=== PATIENT | male | born 1945 | race Caucasian/White ===

== ENCOUNTER → 2017-09-22 | Emergency (ER) | payer MEDICARE ==
[~2017-09-22] VITALS: Ht 180.3 cm; Wt 98.4 kg
[~2017-09-22] MED LIST: ALLOPURINOL100 MG PO; B100 BALANCED100 MG PO; CILOXAN5 ML OS; CYCLOBENZAPRINE5 MG PO; DAILY VITAMIN1 EAC2 PO; GABAPENTIN600 MG PO; GRALISE600 MG; HUMALOG100 UNIT/1 SQ; LEVEMIR100 UNIT/1 SUB-Q; LISINOPRIL10 MG PO; MELATONIN3 MG PO; METFORMIN HCL1000 MG PO; NORCO 5-325 TA1 EACH PO; OXYCODON-ACETA1 EAC2 PO; OXYCONTIN10 MG PO; SERTRALINE HCL50 MG PO; TAMSULOSIN HCL0.4 MG PO; TRADJENTA5 MG PO; TYLENOL325 MG PO; VITAMIN B-12100 MCG PO; VITAMIN D2000 UNI1 PO
--- OUTSIDE RECORDS SUMMARY | 2017-09-22 14:42 | XMS ---
Demographics + + + | Address | [address] | | | [address] | | | [place] [address] | + + + | Preferred Language | Unknown | + + + | Marital Status | Unknown | + + + | Scientologist Affiliation | Unknown | + + + | Race | Unknown | + + + | Ethnic Group | Unknown | + + + Author + + + | Author | [facility] | + + + | Organization | [facility] | + + + | Address | [address] | | | [place] [address] | + + + | Phone | | + + + Care Team Providers + + + + | Care Manager Management Name | Role | Phone | + + + + Unavailable | Unavailable | + + + + PROBLEMS +---------+ + + +--------+ + + | Type | Condition | ICD9-CM | [id number] | Onset | Condition | SNOMED | | | | Code | Code | Dates | Status | Code | +---------+ + + +--------+ + + | Problem | 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 | | Active | [id number] | | | disorder | | | | | | +---------+ + + +--------+ + + | Problem | Lumbar | M48.06 | | | Active | 96110449 | | | stenosis | | | | | | +---------+ + + +--------+ + + | Problem | Essential | | I10 | | Active | 18687815 | | | (primary) | | | | | | | | hypertensi | | | | | | | | on | | | | | | +---------+ + + +--------+ + + | Problem | Dyslipidem | E78.5 | | | Active | 156823373 | | | ia | | | | | | +---------+ + + +--------+ + + | Problem | Hyperurice | | E79.0 | | Active | 19440989 | | | agatha | | | | | | +---------+ + + +--------+ + + | 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 | | | Active | 75884176 | | | diabetes | | | | | | | | mellitus | | | | | | +---------+ + + +--------+ + + | Problem | Iron | | E61.1 | | Active | 81113813 | | | deficiency | | | | | | +---------+ + + +--------+ + + | Problem | Chronic | | G89.4 | | Active | [id number] | | | pain | | | | | | | | syndrome | | | | | | +---------+ + + +--------+ + + ALLERGIES + + + + +--------+ | Substance | Reaction | Event Type | Date | Status | + + + + +--------+ | Metoclopramide | Hallucinations | Drug Allergy | Apr, | Active | | HCl | | | | | + + + + +--------+ | Amitriptyline | Hallucinations | Drug Allergy | Apr, | Active | | HCl | | | | | + + + + +--------+ SOCIAL HISTORY No smoking Hx information available PLAN OF CARE + +---------+ | Activity | Details | + +---------+ +---+ | | +---+ + + + | Follow Up | July 2017 Reason:null | + + + VITAL SIGNS + + + + | Height | 70 in | 2017-05-10 | + + + + | Weight | 224.2 lbs | 2017-05-10 | + + + + | BMI | 32.17 kg/m2 | 2017-05-10 | + + + + | Temperature | 98.3 degrees Fahrenheit | 2017-05-10 | + + + + | Heart Rate | 63 /min | 2017-05-10 | + + + + | Blood pressure systolic | 137 mm Hg | 2017-05-10 | + + + + | Blood pressure diastolic | 74 mm Hg | 2017-05-10 | + + + + MEDICATIONS + + + + + + + +--------+ | Medicati | Instruct | Dosage | Frequenc | Start | End Date | Duration | Status | | on | ions | | y | Date | | | | + + + + + + + +--------+ | Melatoni | Orally | | | | | | Active | | n 10 mg | at | | | | | | | | | bedtime | | | | | | | + + + + + + + +--------+ | Blood | subcutan | 1 test | | 20 Apr, | | | Active | | Glucose | eously | strip | | 2016 | | | | | Test | one time | | | | | | | | Strip . | daily | | | | | | | | | in am | | | | | | | | | for | | | | | | | | | checking | | | | | | | | | blood | | | | | | | | | sugars | | | | | | | + + + + + + + +--------+ | Oxycodon | Orally | 1 tablet | 6h | | | | Active | | e-Acetam | every 6 | as | | | | | | | inophen | hrs | needed | | | | | | | 7.5-325 | | | | | | | | | MG | | | | | | | | + + + + + + + +--------+ | Morphine | Orally | 1 tablet | | | | | Active | | Sulfate | Daily at | | | | | | | | 15 MG | bedtime | | | | | | | | | for | | | | | | | | | pain | | | | | | | + + + + + + + +--------+ | Tizanidi | Orally | 1 tablet | | | | | Active | | ne HCl 4 | at | as | | | | | | | mg | bedtime | needed | | | | | | + + + + + + + +--------+ | Metformi | Orally | 1 tablet | 12h | | | | Active | | n HCl | Twice a | with | | | | | | | 1000 mg | day | meals | | | | | | + + + + + + + +--------+ | GlipiZID | Orally | 1 tablet | | 20 Apr, | | | Active | | E 5 MG | Once a | | | 2017 | | | | | | day - | | | | | | | | | FOR | | | | | | | | | DIABETES | | | | | | | + + + + + + + +--------+ | Clobetas | External | 1 | | 20 Apr, | | | Active | | ol | ly Twice | applicat | | 2017 | | | | | Propiona | a day | ion to | | | | | | | te 0.05 | -CREAM | affected | | | | | | | % | FOR THE | area | | | | | | | | HAND | | | | | | | + + + + + + + +--------+ | Ferrous | Orally | 5 ml | | 24 March, | | | Active | | Sulfate | Three | | | 2017 | | | | | 300 (60 | time a | | | | | | | | Fe) | day | | | | | | | | MG/5ML | | | | | | | | + + + + + + + +--------+ | Allopuri | Orally | 1 tablet | 24h | | | | Active | | nol 300 | Once a | | | | | | | | MG | day | | | | | | | + + + + + + + +--------+ | Sertrali | Orally | 1 tablet | 24h | | | | Active | | ne HCl | Once a | | | | | | | | 50 mg | day | | | | | | | + + + + + + + +--------+ | Gabapent | Orally | 1 | | | | | Active | | in 600 | PRN | capsule | | | | | | | MG | every | | | | | | | | | 4-6 | | | | | | | | | hours | | | | | | | + + + + + + + +--------+ | Tamsulos | Orally | 1 | 24h | | | | Active | | in HCl | Once a | capsule | | | | | | | 0.4 MG | day | 30 | | | | | | | | | minutes | | | | | | | | | after | | | | | | | | | the same | | | | | | | | | meal | | | | | | | | | each day | | | | | | + + + + + + + +--------+ | Sitaglip | Orally | 1 tablet | | 20 Apr, | | | Active | | tin | Once a | | | 2017 | | | | | Phosphat | day - | | | | | | | | e 50 mg | FOR | | | | | | | | | DIABETES | | | | | | | + + + + + + + +--------+ RESULTS No Results PROCEDURES + + + + + | Procedure | Date Ordered | Related Diagnosis | Body Site | + + + + + | Office Visit, Est | May 10, 2017 | | | | Pt., Level 3 | | | | + + + + + | HG A1C LEVEL | May 10, 2017 | | | | 7.0-9.0% | | | | + + + + + | [facility] MED/CURRENT | May 10, 2017 | | | | MED MERGE | | | | + + + + + IMMUNIZATIONS No Known Immunizations"
--- OUTSIDE RECORDS SUMMARY | 2017-09-22 14:42 | XMS ---
Demographics + + + | Address | [address] | | | [address] | | | [place] [address] | + + + | Preferred Language | Unknown | + + + | Marital Status | Unknown | + + + | Uatsdin Affiliation | Unknown | + + + | Race | Unknown | + + + | Ethnic Group | Unknown | + + + Author + + + | Author | [facility] | + + + | Organization | [facility] | + + + | Address | [address] | | | [place] [address] | + + + | Phone | | + + + Care Team Providers + + + + | Care It Administrative Assistant Name | Role | Phone | + + + + Unavailable | Unavailable | + + + + PROBLEMS +---------+ + + +--------+ + + | Type | Condition | ICD9-CM | [id number] | Onset | Condition | SNOMED | | | | Code | Code | Dates | Status | Code | +---------+ + + +--------+ + + | Problem | Chronic | | G89.4 | | Active | [id number] | | | pain | | | | | | | | syndrome | | | | | | +---------+ + + +--------+ + + | Problem | Dyslipidem | E78.5 | | | Active | 018840033 | | | ia | | | | | | +---------+ + + +--------+ + + | Problem | Iron | | 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.1 | | Active | 88444604 | | | deficiency | | | | | | +---------+ + + +--------+ + + | Problem | Lumbar | M48.06 | | | Active | 50787604 | | | stenosis | | | | | | +---------+ + + +--------+ + + | Problem | 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 | | Active | 77682164 | | | disorder | | | | | | +---------+ + + +--------+ + + | 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 | | | Active | 23452256 | | | diabetes | | | | | | | | mellitus | | | | | | +---------+ + + +--------+ + + | Problem | Hyperurice | | E79.0 | | Active | 44363623 | | | agatha | | | | | | +---------+ + + +--------+ + + | Problem | Shortness | | R06.02 | | Active | 041652844 | | | of breath | | | | | | +---------+ + + +--------+ + + | Problem | Dyspnea | | R06.00 | | Active | 192898506 | +---------+ + + +--------+ + + | Problem | Essential | | I10 | | Active | 23169250 | | | (primary) | | | | | | | | hypertensi | | | | | | | | on | | | | | | +---------+ + + +--------+ + + | Problem | Gastropare | | E11.43 | | Active | 483118855 | | | sis due to | | | | | | | | DM | | | | | | +---------+ + + +--------+ + + | Problem | Dysuria | | R30.0 | | Active | 87331938 | +---------+ + + +--------+ + + | Problem | UTI | | N39.0 | | Active | 61934742 | | | (urinary | | | | | | | | tract | | | | | | | | infection) | | | | | | +---------+ + + +--------+ + + ALLERGIES Unknown Allergies SOCIAL HISTORY No smoking Hx information available PLAN OF CARE VITAL SIGNS MEDICATIONS Unknown Medications RESULTS No Results PROCEDURES No Known procedures IMMUNIZATIONS No Known Immunizations"
--- OUTSIDE RECORDS SUMMARY | 2017-09-22 14:42 | XMS ---
Demographics + + + | Address | [address] | | | [address] | | | [place] [address] | + + + | Preferred Language | Unknown | + + + | Marital Status | Unknown | + + + | Jehovah'S Witness Affiliation | Unknown | + + + | Race | Unknown | + + + | Ethnic Group | Unknown | + + + Author + + + | Author | [facility] | + + + | Organization | [facility] | + + + | Address | [address] | | | [place] [address] | + + + | Phone | | + + + Care Team Providers + + + + | Care Director Of Gift Planning Name | Role | Phone | + + + + Unavailable | Unavailable | + + + + PROBLEMS +---------+ + + +--------+ + + | Type | Condition | ICD9-CM | [id number] | Onset | Condition | SNOMED | | | | Code | Code | Dates | Status | Code | +---------+ + + +--------+ + + | Problem | Chronic | | G89.4 | | Active | [id number] | | | pain | | | | | | | | syndrome | | | | | | +---------+ + + +--------+ + + | Problem | Dyslipidem | E78.5 | | | Active | 966147619 | | | ia | | | | | | +---------+ + + +--------+ + + | Problem | Iron | | 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.1 | | Active | 44541831 | | | deficiency | | | | | | +---------+ + + +--------+ + + | Problem | Lumbar | M48.06 | | | Active | 03981729 | | | stenosis | | | | | | +---------+ + + +--------+ + + | Problem | 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 | | Active | 96759757 | | | disorder | | | | | | +---------+ + + +--------+ + + | 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 | | | Active | 26955637 | | | diabetes | | | | | | | | mellitus | | | | | | +---------+ + + +--------+ + + | Problem | Hyperurice | | E79.0 | | Active | 24769477 | | | agatha | | | | | | +---------+ + + +--------+ + + | Problem | Shortness | | R06.02 | | Active | 648492592 | | | of breath | | | | | | +---------+ + + +--------+ + + | Problem | Dyspnea | | R06.00 | | Active | 457760650 | +---------+ + + +--------+ + + | Problem | Essential | | I10 | | Active | 49937612 | | | (primary) | | | | | | | | hypertensi | | | | | | | | on | | | | | | +---------+ + + +--------+ + + | Problem | Gastropare | | E11.43 | | Active | 781799394 | | | sis due to | | | | | | | | DM | | | | | | +---------+ + + +--------+ + + | Problem | Dysuria | | R30.0 | | Active | 43903293 | +---------+ + + +--------+ + + | Problem | UTI | | N39.0 | | Active | 47894689 | | | (urinary | | | | | | | | tract | | | | | | | | infection) | | | | | | +---------+ + + +--------+ + + ALLERGIES Unknown Allergies SOCIAL HISTORY No smoking Hx information available PLAN OF CARE VITAL SIGNS MEDICATIONS + + +---------+ +--------+ + +--------+ | Medicati | Instruct | Dosage | Frequenc | Start | End Date | Duration | Status | | on | ions | | y | Date | | | | + + +---------+ +--------+ + +--------+ | Gabapent | Orally | 1 | | | | | Active | | in 600 | PRN | capsule | | | | | | | MG | every | | | | | | | | | 4-6 | | | | | | | | | hours | | | | | | | + + +---------+ +--------+ + +--------+ RESULTS No Results PROCEDURES No Known procedures IMMUNIZATIONS No Known Immunizations"
--- OUTSIDE RECORDS SUMMARY | 2017-09-22 14:42 | XMS ---
Demographics + + + | Address | [address] | | | [address] | | | [place] [address] | + + + | Preferred Language | Unknown | + + + | Marital Status | Unknown | + + + | Baptism Affiliation | Unknown | + + + | Race | Unknown | + + + | Ethnic Group | Unknown | + + + Author + + + | Author | [facility] | + + + | Organization | [facility] | + + + | Address | [address] | | | [place] [address] | + + + | Phone | | + + + Care Team Providers + + + + | Care Quality Control Engineering Technician Name | Role | Phone | + + + + Unavailable | Unavailable | + + + + PROBLEMS +---------+ + + +--------+ + + | Type | Condition | ICD9-CM | [id number] | Onset | Condition | SNOMED | | | | Code | Code | Dates | Status | Code | +---------+ + + +--------+ + + | Problem | 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 | | Active | 12992515 | | | disorder | | | | | | +---------+ + + +--------+ + + | Problem | Lumbar | M48.06 | | | Active | 55409725 | | | stenosis | | | | | | +---------+ + + +--------+ + + | Problem | Benign | N40.0 | | | Active | 273527868 | | | prostate | | | | | | | | hyperplasi | | | | | | | | a | | | | | | +---------+ + + +--------+ + + | Problem | Dyslipidem | E78.5 | | | Active | 637085412 | | | ia | | | | | | +---------+ + + +--------+ + + | Problem | Hyperurice | | E79.0 | | Active | 51199788 | | | agatha | | | | | | +---------+ + + +--------+ + + | 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 | | | Active | 20435302 | | | diabetes | | | | | | | | mellitus | | | | | | +---------+ + + +--------+ + + | Problem | Iron | | E61.1 | | Active | 75661389 | | | deficiency | | | | | | +---------+ + + +--------+ + + | Problem | Chronic | | G89.4 | | Active | 698573832 | | | pain | | | | | | | | syndrome | | | | | | +---------+ + + +--------+ + + ALLERGIES + + + + +--------+ | Substance | Reaction | Event Type | Date | Status | + + + + +--------+ | Metoclopramide | Hallucinations | Drug Allergy | Jul, | Active | | HCl | | | | | + + + + +--------+ | Amitriptyline | Hallucinations | Drug Allergy | Jul, | Active | | HCl | | | | | + + + + +--------+ SOCIAL HISTORY No smoking Hx information available PLAN OF CARE + +---------+ | Activity | Details | + +---------+ +---+ | | +---+ + + + | Follow Up | 3 Months Reason:null | + + + VITAL SIGNS + + + + | Height | 70 in | 2017-08-09 | + + + + | Weight | 230.0 lbs | 2017-08-09 | + + + + | BMI | 33.00 kg/m2 | 2017-08-09 | + + + + | Temperature | 97.4 degrees Fahrenheit | 2017-08-09 | + + + + | Heart Rate | 66 /min | 2017-08-09 | + + + + | Blood pressure systolic | 138 mm Hg | 2017-08-09 | + + + + | Blood pressure diastolic | 73 mm Hg | 2017-08-09 | + + + + MEDICATIONS + + + + + + + +--------+ | Medicati | Instruct | Dosage | Frequenc | Start | End Date | Duration | Status | | on | ions | | y | Date | | | | + + + + + + + +--------+ | Gabapent | Orally | 1 | 6h | | | | Active | | in 600 | Four | capsule | | | | | | | MG | times a | | | | | | | | | day | | | | | | | + + + + + + + +--------+ | Clobetas | External | 1 | | 20 Apr, | | | Active | | ol | ly Twice | applicat | | 2016 | | | | | Propiona | [...] + + + + + +--------+ | Voltaren | Transder | 2 gm | | 12 Jul, | 10 Nov, | 30 | Active | | 1 % | mal Four | | | 2016 | 2018 | day(s) | | | | times a | | | | | | | | | day as | | | | | | | | | needed | | | | | | | | | for pain | | | | | | | | | of the | | | | | | | | | right | | | | | | | | | hand | | | | | | | + + + + + + + +--------+ | Ferrous | Orally | 5 ml | 24h | 20 April, | | | Active | | Sulfate | Once a | | | 2016 | | | | | 300 (60 | day | | | | | | | | Fe) | | | | | | | | | MG/5ML | | | | | | | | + + + + + + + +--------+ | Blood | subcutan | 1 test | | 20 Feb, | | | Active | | Glucose [...] + + + + + +--------+ | True | In Vitro | 1 strip | | 25 George, | | | Active | | Metrix | Use to | | | 2017 | | | | | Blood | test | | | | | | | | Glucose | Blood | | | | | | | | Test . | Glucose | | | | | | | | | Once | | | | | | | | | Daily in | | | | | | | | | the | | | | | | | | | Morning | | | | | | | | | for | | | | | | | | | Diabetes | | | | | | | + + + + + + + +--------+ | OxyConti | Orally | 1 tablet | 12h | | | | Active | | n 10 mg | every 12 | | | | | | | | | hrs | | | | | | | [...] + + + + + +--------+ | Linaglip | Orally | 1 tablet | 24h | 12 Jul, | | | Active | | tin 5 MG | Once a | | | 2017 | | | | | | day | | | | | | | + + + + + + + +--------+ RESULTS No Results PROCEDURES + + + + + | Procedure | Date Ordered | Related Diagnosis | Body Site | + + + + + | Influenza Medicare | Aug 09, 2017 | | | + + + + + | ADMN FLU VAC | Aug 09, 2017 | | | + + + + + | NEG | Aug 09, 2017 | | | | MICROALBUMINURIA | | | | | REV | | | | + + + + + | DIL RETINA EXAM | Aug 09, 2017 | | | | INTERP REV | | | | + + + + + | DOC MEDS VERIFIED | Aug 09, 2017 | | | | W/PT OR RE | | | | + + + + + | HG A1C LEVEL LT | Aug 09, 2017 | | | | <7.0% | | | | + + + + + | Office Visit, Est | Aug 09, 2017 | | | | Pt., Level 5 | | | | + + + + + | COLORECTAL [place] | Aug 09, 2017 | | | | SCREEN DOC REV | | | | + + + + + | [facility] MED/CURRENT | Aug 09, 2017 | | | | MED MERGE | | | | + + + + + IMMUNIZATIONS + + + + + | Vaccine | Route | Administration Date | Status | + + + + + | Influenza Medicare | IM Intramuscular | Aug 09, 2017 | Administered | + + + + +"
--- OUTSIDE RECORDS SUMMARY | 2017-09-22 14:42 | XMS ---
Demographics + + + | Address | [address] | | | [address] | | | [place] [address] | + + + | Preferred Language | Unknown | + + + | Marital Status | Unknown | + + + | Pentecostal Affiliation | Unknown | + + + | Race | Unknown | + + + | Ethnic Group | Unknown | + + + Author + + + | Author | [facility] | + + + | Organization | [facility] | + + + | Address | [address] | | | [place] [address] | + + + | Phone | | + + + Care Team Providers + + + + | Care Speech Coach Name | Role | Phone | + + + + Unavailable | Unavailable | + + + + PROBLEMS +---------+ + + +--------+ + + | Type | Condition | ICD9-CM | [id number] | Onset | Condition | SNOMED | | | | Code | Code | Dates | Status | Code | +---------+ + + +--------+ + + | Problem | 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 | | Active | 14823969 | | | disorder | | | | | | +---------+ + + +--------+ + + | Problem | Lumbar | M48.06 | | | Active | 49367105 | | | stenosis | | | | | | +---------+ + + +--------+ + + | Problem | Essential | | I10 | | Active | 12594608 | | | (primary) | | | | | | | | hypertensi | | | | | | | | on | | | | | | +---------+ + + +--------+ + + | Problem | Dyslipidem | E78.5 | | | Active | 275007761 | | | ia | | | | | | +---------+ + + +--------+ + + | Problem | Hyperurice | | E79.0 | | Active | 94170913 | | | agatha | | | | | | +---------+ + + +--------+ + + | 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 | | | Active | 64272046 | | | diabetes | | | | | | | | mellitus | | | | | | +---------+ + + +--------+ + + | Problem | Iron | | E61.1 | | Active | 70605909 | | | deficiency | | | | | | +---------+ + + +--------+ + + | Problem | Chronic | | G89.4 | | Active | 633104277 | | | pain | | | | | | | | syndrome | | | | | | +---------+ + + +--------+ + + ALLERGIES Unknown Allergies SOCIAL HISTORY No smoking Hx information available PLAN OF CARE VITAL SIGNS MEDICATIONS + + + + + + [...] In Vitro | 1 strip | | May, | | | Active | | Metrix | Use to | | | 2016 | | | | | Blood | [...] | Sulfate | Three | | | 2016 | | | [...] tin | Once a | | | 2016 | | | | | Phosphat | [...] + + +--------+ RESULTS No Results PROCEDURES No Known procedures IMMUNIZATIONS No Known Immunizations"
--- OUTSIDE RECORDS SUMMARY | 2017-09-22 14:42 | XMS ---
Demographics + + + | Address | [address] | | | [address] | | | [place] [address] | + + + | Preferred Language | Unknown | + + + | Marital Status | Unknown | + + + | Buddhism Affiliation | Unknown | + + + | Race | Unknown | + + + | Ethnic Group | Unknown | + + + Author + + + | Author | [facility] | + + + | Organization | [facility] | + + + | Address | [address] | | | [place] [address] | + + + | Phone | | + + + Care Team Providers + + + + | Care Nitrocellulose Operator Name | Role | Phone | + + + + Unavailable | Unavailable | + + + + PROBLEMS +---------+ + + +--------+ + + | Type | Condition | ICD9-CM | [id number] | Onset | Condition | SNOMED | | | | Code | Code | Dates | Status | Code | +---------+ + + +--------+ + + | Problem | 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 | | Active | [id number] | | | disorder | | | | | | +---------+ + + +--------+ + + | Problem | Lumbar | M48.06 | | | Active | 01970881 | | | stenosis | | | | | | +---------+ + + +--------+ + + | Problem | Essential | | I10 | | Active | 41422483 | | | (primary) | | | | | | | | hypertensi | | | | | | | | on | | | | | | +---------+ + + +--------+ + + | Problem | Dyslipidem | E78.5 | | | Active | 094081975 | | | ia | | | | | | +---------+ + + +--------+ + + | Problem | Hyperurice | | E79.0 | | Active | 29573138 | | | agatha | | | | | | +---------+ + + +--------+ + + | 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 | | | Active | 39410526 | | | diabetes | | | | | | | | mellitus | | | | | | +---------+ + + +--------+ + + | Problem | Iron | | E61.1 | | Active | 52304599 | | | deficiency | | | | | | +---------+ + + +--------+ + + | Problem | Chronic | | G89.4 | | Active | 113774809 | | | pain | | | | | | | | syndrome | | | | | | +---------+ + + +--------+ + + ALLERGIES Unknown Allergies SOCIAL HISTORY No smoking Hx information available PLAN OF CARE VITAL SIGNS MEDICATIONS Unknown Medications RESULTS No Results PROCEDURES No Known procedures IMMUNIZATIONS No Known Immunizations"
--- OUTSIDE RECORDS SUMMARY | 2017-09-22 14:42 | XMS ---
Demographics + + + | Address | [address] | | | [address] | | | [place] [address] | + + + | Preferred Language | Unknown | + + + | Marital Status | Unknown | + + + | Temple Affiliation | Unknown | + + + | Race | Unknown | + + + | Ethnic Group | Unknown | + + + Author + + + | Author | [facility] | + + + | Organization | [facility] | + + + | Address | [address] | | | [place] [address] | + + + | Phone | | + + + Care Team Providers + + + + | Care Network Strategist Name | Role | Phone | + + + + Unavailable | Unavailable | + + + + PROBLEMS + + + + + + + + | Type | Condition | ICD9-CM | [id number] | Onset | Condition | SNOMED | | | | Code | Code | Dates | Status | Code | + + + + + + + + | Problem | Chronic | | G89.4 | | Active | [id number] | | | pain | | | | | | | | syndrome | | | | | | + + + + + + + + | Problem | Dyslipidem | E78.5 | | | Active | 404502673 | | | ia | | | | | | + + + + + + + + | Problem | Iron | | E61.1 | | Active | 01685888 | | | deficiency | | | | | | + + + + + + + + | Problem | Shortness | | R06.02 | | Active | 028468311 | | | of breath | | | | | | + + + + + + + + | Problem | Dyspnea | | R06.00 | | Active | 646432321 | + + + + + + + + | Problem | Essential | | I10 | | Active | 11981953 | | | (primary) | | | | | | | | hypertensi | | | | | | | | on | | | | | | + + + + + + + + | Problem | Gastropare | | E11.43 | | Active | 041912867 | | | sis due to | | | | | | | | DM | | | | | | + + + + + + + + | Problem | Dysuria | | R30.0 | | Active | 13130910 | + + + + + + + + | Problem | UTI | | N39.0 | | Active | 87229382 | | | (urinary | | | | | | | | tract | | | | | | | | infection) | | | | | | + + + + + + + + | Problem | Lumbar | M48.06 | | | Active | 39426508 | | | stenosis | | | | | | + + + + + + + + | Problem | 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 | | Active | 97760560 | | | disorder | | | | | | + + + + + + + + | 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 | | | Active | 60639590 | | | diabetes | | | | | | | | mellitus | | | | | | + + + + + + + + | Assessment | Shortness | | R06.02 | 06 April, | Active | 803146176 | | | of breath | | | 2017 | | | + + + + + + + + | Problem | Hyperurice | | E79.0 | | Active | 73586168 | | | agatha | | | | | | + + + + + + + + ALLERGIES + + + + +---------+ | Substance | Reaction | Event Type | Date | Status | + + + + +---------+ | N.K.D.A. | Unknown | Non Drug | March, | Unknown | | | | Allergy | | | + + + + +---------+ SOCIAL HISTORY No smoking Hx information available PLAN OF CARE + +---------+ | Activity | Details | + +---------+ +---+ | | +---+ + + + | Pending Test | CBC | + + + | Pending Test | X ray : Chest AP/Lat | + + + | | prn,Reason: | + + + VITAL SIGNS + + + + | Height | 70 in | 2017-04-06 | + + + + | Weight | 234.6 lbs | 2017-04-06 | + + + + | BMI | 33.66 kg/m2 | 2017-04-06 | + + + + | Temperature | 99.1 degrees Fahrenheit | 2017-04-06 | + + + + | Heart Rate | 104 /min | 2017-04-06 | + + + + | Blood pressure systolic | 144 mm Hg | 2017-04-06 | + + + + | Blood pressure diastolic | 76 mm Hg | 2017-04-06 | + + + + MEDICATIONS + [...] + + + + + +--------+ | Amitript | Orally | 1 tablet | | 20 Apr, | | | Active | | yline | Once a | | | 2016 | | | | | HCl 25 | day at | | | | | | | | MG | bedtime | | | | | | | | | for | | | | | | | | | sleep | | | | | | | | | and | | | | | | | | | chronic | | | | | | | | | pain | | | | | | | + + + + + + + +--------+ | Metoclop | Orally | 1 tablet | | 20 Feb, | | | Active | | ramide | Four | | | 2016 | | | | | HCl 5 MG | times a | | | | | | | | | day, 30 | | | | | | | | | minutes | | | | | | | | | before | | | | | | | | | meals | | | | | | | | | and at | | | | | | [...] + + + + + +--------+ | Bactrim | Orally | 1 tablet | 12h | 10 March, | 17 March, | 7 days | Active | | DS | Twice a | | | 2016 | 2016 | | | | 800-160 | day | | | | | [...] + + + + + +--------+ | MS | Orally | 1 tablet | | | | | Active | | Contin | Daily at | | | | | | | | 15 MG | Bedtime | | | | | | | [...] | Active | | in 600 | Five | capsule | | | | | | | MG | times a | | | | | | | | | day and | | | | | | | | | take an | | | | | | | | | extra | | | | | | | | | 600mg at | | | | | | | | | bedtime | | | | | | | + + + + + + + +--------+ | Sertrali | Orally | 1 tablet | 24h | | | 30 | Active | | ne HCl | Once a | | | | | day(s) | | | 50 MG | day | | | | [...] + + + + + +--------+ | Lisinopr | Orally | 1 tablet | | 20 Apr, | | | Active | | [place] | Once a | | | 2017 | | | | | chloroth | day - | | | | | | | | iazide | HIGH | | | | | | | | 10-12.5 | BLOOD | | | | | | | | MG | PRESSURE | | | | | | | [...] + + + + + +--------+ RESULTS + +--------+------+ + | Name | Result | Date | Reference Range | + +--------+------+ + | Urinalysis, Dip | | | | | (IH) | | | | + +--------+------+ + | Specific [place] | 1.025 | | | + +--------+------+ + | pH | 5 | | | + +--------+------+ + | Leukocytes | 500 | | | + +--------+------+ + | Nitrite, Urine | pos | | | + +--------+------+ + | Protein | neg | | | + +--------+------+ + | Glucose | norm | | | + +--------+------+ + | Ketones | neg | | | + +--------+------+ + | Urobilingen, | norm | | | | Semi-Qn | | | | + +--------+------+ + | Bilirubin | neg | | | + +--------+------+ + | Blood Hemoglobin | 50 | | | | (BLD) | | | | + +--------+------+ + | Glucose, Finger | | | | | Stick (IH) | | | | + +--------+------+ + PROCEDURES + + + + + | Procedure | Date Ordered | Related Diagnosis | Body Site | + + + + + | REAGENT STRIP/BLOOD | April 06, 2017 | | | | GLUCOSE | | | | + + + + + | LAB URINALYSIS (DIP | April 06, 2017 | | | | STICK ONLY | | | | + + + + + | Office Visit, Est | April 06, 2017 | | | | Pt., Level 4 | | | | + + + + + IMMUNIZATIONS No Known Immunizations"
--- OUTSIDE RECORDS SUMMARY | 2017-09-22 14:42 | XMS ---
Demographics + + + | Address | [address] | | | [address] | | | [place] [address] | + + + | Preferred Language | Unknown | + + + | Marital Status | Unknown | + + + | Hoahaoism Affiliation | Unknown | + + + | Race | Unknown | + + + | Ethnic Group | Unknown | + + + Author + + + | Author | [facility] | + + + | Organization | [facility] | + + + | Address | [address] | | | [place] [address] | + + + | Phone | | + + + Care Team Providers + + + + | Care Toe Closing Machine Tender Name | Role | Phone | + + + + Unavailable | Unavailable | + + + + PROBLEMS +---------+ + + +--------+ + + | Type | Condition | ICD9-CM | DQN00-[id number] | Onset | Condition | SNOMED | | | | Code | Code | Dates | Status | Code | +---------+ + + +--------+ + + | Problem | Chronic | | G89.4 | | Active | [id number] | | | pain | | | | | | | | syndrome | | | | | | +---------+ + + +--------+ + + | Problem | Dyslipidem | E78.5 | | | Active | 863424592 | | | ia | | | | | | +---------+ + + +--------+ + + | Problem | Iron | | E61.1 | | Active | 71858181 | | | deficiency | | | | | | +---------+ + + +--------+ + + | Problem | Lumbar | M48.06 | | | Active | 67963462 | | | stenosis | | | | | | +---------+ + + +--------+ + + | Problem | 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 | | Active | 22390188 | | | disorder | | | | | | +---------+ + + +--------+ + + | 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 | | | Active | 30906444 | | | diabetes | | | | | | | | mellitus | | | | | | +---------+ + + +--------+ + + | Problem | Hyperurice | | E79.0 | | Active | 41472283 | | | agatha | | | | | | +---------+ + + +--------+ + + | Problem | Shortness | | R06.02 | | Active | 368972667 | | | of breath | | | | | | +---------+ + + +--------+ + + | Problem | Dyspnea | | R06.00 | | Active | 133228824 | +---------+ + + +--------+ + + | Problem | Essential | | I10 | | Active | 93414933 | | | (primary) | | | | | | | | hypertensi | | | | | | | | on | | | | | | +---------+ + + +--------+ + + | Problem | Gastropare | | E11.43 | | Active | 788107924 | | | sis due to | | | | | | | | DM | | | | | | +---------+ + + +--------+ + + | Problem | Dysuria | | R30.0 | | Active | 21958052 | +---------+ + + +--------+ + + | Problem | UTI | | N39.0 | | Active | 00238559 | | | (urinary | | | [...]
--- OUTSIDE RECORDS SUMMARY | 2017-09-22 14:43 | XMS ---
Demographics + + + | Address | [address] | | | [address] | | | [place] [address] | + + + | Preferred Language | Unknown | + + + | Marital Status | Unknown | + + + | Moravian Affiliation | Unknown | + + + | Race | Unknown | + + + | Ethnic Group | Unknown | + + + Author + + + | Author | [facility] | + + + | Organization | [facility] | + + + | Address | [address] | | | [place] [address] | + + + | Phone | | + + + Care Team Providers + + + + | Care Business Machine Operator Name | Role | Phone | + + + + Unavailable | Unavailable | + + + + PROBLEMS +---------+ + + +--------+ + + | Type | Condition | ICD9-CM | EIX86-VP | Onset | Condition | SNOMED | | | | Code | Code | Dates | Status | Code | +---------+ + + +--------+ + + | Problem | 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 | | Active | 28738212 | | | disorder | | | | | | +---------+ + + +--------+ + + | Problem | Lumbar | M48.06 | | | Active | 79735123 | | | stenosis | | | | | | +---------+ + + +--------+ + + | Problem | Essential | | I10 | | Active | 22180730 | | | (primary) | | | | | | | | hypertensi | | | | | | | | on | | | | | | +---------+ + + +--------+ + + | Problem | Dyslipidem | E78.5 | | | Active | 902604509 | | | ia | | | | | | +---------+ + + +--------+ + + | Problem | Hyperurice | | E79.0 | | Active | 53538550 | | | agatha | | | | | | +---------+ + + +--------+ + + | 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 | | | Active | 90881634 | | | diabetes | | | | | | | | mellitus | | | | | | +---------+ + + +--------+ + + | Problem | Iron | | E61.1 | | Active | 22415375 | | | deficiency | | | | | | +---------+ + + +--------+ + + | Problem | Chronic | | G89.4 | | Active | 188199226 | | | pain | | | [...] | External | 1 | | 20 Feb, | | | Active | | ol [...]
--- OUTSIDE RECORDS SUMMARY | 2017-09-22 14:43 | XMS ---
Demographics + + + | Address | [address] | | | [address] | | | [place] [address] | + + + | Preferred Language | Unknown | + + + | Marital Status | Unknown | + + + | Latter-Day Affiliation | Unknown | + + + | Race | Unknown | + + + | Ethnic Group | Unknown | + + + Author + + + | Author | [facility] | + + + | Organization | [facility] | + + + | Address | [address] | | | [place] [address] | + + + | Phone | | + + + Care Team Providers + + + + | Care Field Manager Name | Role | Phone | + + + + Unavailable | Unavailable | + + + + PROBLEMS +---------+ + + +--------+ + + | Type | Condition | ICD9-CM | NRT35-RN | Onset | Condition | SNOMED | | | | Code | Code | Dates | Status | Code | +---------+ + + +--------+ + + | Problem | Lumbar | M48.06 | | | Active | 14410973 | | | stenosis | | | | | | +---------+ + + +--------+ + + | 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 | | | Active | 45694698 | | | diabetes | | | | | | | | mellitus | | | | | | +---------+ + + +--------+ + + | Problem | 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 | | Active | 17223531 | | | disorder | | | | | | +---------+ + + +--------+ + + | Problem | Essential | | I10 | | Active | 35408312 | | | (primary) | | | | | | | | hypertensi | | | | | | | | on | | | | | | +---------+ + + +--------+ + + | Problem | Gastropare | | E11.43 | | Active | 811564732 | | | sis due to | | | | | | | | DM | | | | | | +---------+ + + +--------+ + + | Problem | Chronic | | G89.4 | | Active | 085914290 | | | pain | | | | | | | | syndrome | | | | | | +---------+ + + +--------+ + + | Problem | Hyperurice | | E79.0 | | Active | 64009382 | | | agatha | | | | | | +---------+ + + +--------+ + + | Problem | Dyslipidem | E78.5 | | | Active | 753055727 | | | ia | | | | | | +---------+ + + +--------+ + + | Problem | Iron | | E61.1 | | Active | 82113254 | | | deficiency | | | [...] Apr, | | | Active | | ramide | Four | | | 2017 | | | | | HCl 5 [...] MG | Once a | | | 2016 | | | | | | day [...] Apr, | | | Active | | [place] | Once a | | | 2017 [...] Glucose | eously | strip | | 2017 | | | | | Test | [...] yline | Once a | | | 2017 | | | | | HCl 25 [...]
--- OUTSIDE RECORDS SUMMARY | 2017-09-22 14:43 | XMS ---
Demographics + + + | Address | [address] | | | [address] | | | [place] [address] | + + + | Preferred Language | Unknown | + + + | Marital Status | Unknown | + + + | Judaism Affiliation | Unknown | + + + | Race | Unknown | + + + | Ethnic Group | Unknown | + + + Author + + + | Author | [facility] | + + + | Organization | [facility] | + + + | Address | [address] | | | [place] [address] | + + + | Phone | | + + + Care Team Providers + + + + | Care Allopathic Doctor Name | Role | Phone | + + + + Unavailable | Unavailable | + + + + PROBLEMS +---------+ + + +--------+ + + | Type | Condition | ICD9-CM | GHZ95-OH | Onset | Condition | SNOMED | | | | Code | Code | Dates | Status | Code | +---------+ + + +--------+ + + | Problem | Lumbar | M48.06 | | | Active | 64704144 | | | stenosis | | | | | | +---------+ + + +--------+ + + | Problem | Dyslipidem | E78.5 | | | Active | 133344210 | | | ia | | | | | | +---------+ + + +--------+ + + | Problem | Iron | | E61.1 | | Active | 32937253 | | | deficiency | | | | | | +---------+ + + +--------+ + + | 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 | | | Active | 20699739 | | | diabetes | | | | | | | | mellitus | | | | | | +---------+ + + +--------+ + + | Problem | 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 | | Active | 08287827 | | | disorder | | | | | | +---------+ + + +--------+ + + | Problem | Chronic | | G89.4 | | Active | 670544108 | | | pain | | | | | | | | syndrome | | | | | | +---------+ + + +--------+ + + | Problem | Hyperurice | | E79.0 | | Active | 52168145 | | | agatha | | | | | | +---------+ + + +--------+ + + ALLERGIES No Information SOCIAL HISTORY Never Assessed PLAN OF CARE VITAL SIGNS MEDICATIONS Unknown Medications RESULTS No Results PROCEDURES No Known procedures IMMUNIZATIONS No Known Immunizations MEDICAL (GENERAL) HISTORY + + + + | Type | Description | Date | + + + + | Medical History | Chronic pain syndrome | | + + + + | Medical History | Hyperuricemia, 09/07/2016, | | | | uric acid was 7.3., 07/2017: | | | | 5.4. | | + + + + | Medical History | Type 2 diabetes mellitus, | | | | , hemoglobin | | | | A1c was 6.9, microalbumin | | | | level negative. 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 | | + + + + | Surgical History | fusion of L4 & L5 | 2013 | + + + + | Surgical History | Right Knee | 1975 | + + + + | Surgical History | Hernia Repair | 1984 | + + + + | Surgical History | Stomach Bypass | 2001 | + + + + | Surgical History | Carpal Tunnel (both Hands) | 2010 | + + + + | Surgical History | Cataracts | 2012 | + + + + | Surgical History | Trigger finger release | 2014 | | | (Both Hands) | | + + + + | Surgical History | Minimally invasive lumbar | 09/28/2016 | | | fusion, posterolateral | | | | arthrodesis L5 and S1. | | | | Posterior spinal | | | | instrumentation L4 ilium, | | + + + + | Hospitalization History | Colonscopy: Serrated | 2013 | | | Adenoma. Hyperplastic | | | | Adenoma. 7 mm. | | + + + +"
--- OUTSIDE RECORDS SUMMARY | 2017-09-22 14:43 | XMS ---
Demographics + + + | Address | [address] | | | [address] | | | [place] [address] | + + + | Preferred Language | Unknown | + + + | Marital Status | Unknown | + + + | Yazdanism Affiliation | Unknown | + + + | Race | Unknown | + + + | Ethnic Group | Unknown | + + + Author + + + | Author | [facility] | + + + | Organization | [facility] | + + + | Address | [address] | | | [place] [address] | + + + | Phone | | + + + Care Team Providers + + + + | Care School Of Nursing Director Name | Role | Phone | + + + + Unavailable | Unavailable | + + + + PROBLEMS +---------+ + + +--------+ + + | Type | Condition | ICD9-CM | FUK00-QV | Onset | Condition | SNOMED | | | | Code | Code | Dates | Status | Code | +---------+ + + +--------+ + + | Problem | Chronic | | G89.4 | | Active | 587125167 | | | pain | | | | | | | | syndrome | | | | | | +---------+ + + +--------+ + + | Problem | Dyslipidem | E78.5 | | | Active | 811290432 | | | ia | | | | | | +---------+ + + +--------+ + + | Problem | Iron | | E61.1 | | Active | 15929885 | | | deficiency | | | | | | +---------+ + + +--------+ + + | Problem | Lumbar | M48.06 | | | Active | 81524627 | | | stenosis | | | | | | +---------+ + + +--------+ + + | Problem | 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 | | Active | 00590345 | | | disorder | | | | | | +---------+ + + +--------+ + + | 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 | | | Active | 86369485 | | | diabetes | | | | | | | | mellitus | | | | | | +---------+ + + +--------+ + + | Problem | Hyperurice | | E79.0 | | Active | 85417785 | | | agatha | | | | | | +---------+ + + +--------+ + + | Problem | Shortness | | R06.02 | | Active | 312856145 | | | of breath | | | | | | +---------+ + + +--------+ + + | Problem | Dyspnea | | R06.00 | | Active | 523836805 | +---------+ + + +--------+ + + | Problem | Essential | | I10 | | Active | 16745212 | | | (primary) | | | | | | | | hypertensi | | | | | | | | on | | | | | | +---------+ + + +--------+ + + | Problem | Gastropare | | E11.43 | | Active | 342225729 | | | sis due to | | | | | | | | DM | | | | | | +---------+ + + +--------+ + + | Problem | Dysuria | | R30.0 | | Active | 53619573 | +---------+ + + +--------+ + + | Problem | UTI | | N39.0 | | Active | 80785770 | | | (urinary | | | [...]
--- OUTSIDE RECORDS SUMMARY | 2017-09-22 14:43 | XMS ---
Demographics + + + | Address | [address] | | | [address] | | | [place] [address] | + + + | Preferred Language [...] | + + + | Organization | [facility] | + + + | Address | [address] | | | [place] [address] | + + + | Phone | | + + + Care Team Providers + + + + | Care Clinical Manager Home Care Name | Role | Phone | + + + + Unavailable | Unavailable | + + + + PROBLEMS +---------+ + + +--------+ + + | Type | Condition | ICD9-CM | [id number] | Onset | Condition | SNOMED | | | | Code | Code | Dates | Status | Code | +---------+ + + +--------+ + + | Problem | 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 | | Active | 23264778 | | | disorder | | | | | | +---------+ + + +--------+ + + | Problem | Lumbar | M48.06 | | | Active | 00700098 | | | stenosis | | | | | | +---------+ + + +--------+ + + | Problem | Essential | | I10 | | Active | 02727662 | | | (primary) | | | | | | | | hypertensi | | | | | | | | on | | | | | | +---------+ + + +--------+ + + | Problem | Dyslipidem | E78.5 | | | Active | 458710748 | | | ia | | | | | | +---------+ + + +--------+ + + | Problem | Hyperurice | | E79.0 | | Active | 57783195 | | | agatha | | | | | | +---------+ + + +--------+ + + | 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 | | | Active | 49539764 | | | diabetes | | | | | | | | mellitus | | | | | | +---------+ + + +--------+ + + | Problem | Iron | | E61.1 | | Active | 60231299 | | | deficiency | | | | | | +---------+ + + +--------+ + + | Problem | Chronic | | G89.4 | | Active | 951036794 | | | pain | | | [...] Feb, | | | Active | | tin [...] Orally | 5 ml | | 24 May, | | | Active | | Sulfate [...]
--- OUTSIDE RECORDS SUMMARY | 2017-09-22 14:43 | XMS ---
Demographics + + + | Address | [address] | | | [address] | | | [place] [address] | + + + | Preferred Language | Unknown | + + + | Marital Status | Unknown | + + + | Rastafari Affiliation | Unknown | + + + | Race | Unknown | + + + | Ethnic Group | Unknown | + + + Author + + + | Author | [facility] | + + + | Organization | [facility] | + + + | Address | [address] | | | [place] [address] | + + + | Phone | | + + + Care Team Providers + + + + | Care Polo Coach Name | Role | Phone | + + + + Unavailable | Unavailable | + + + + PROBLEMS + + + + + + + + | Type | Condition | ICD9-CM | WVS83-PC | Onset | Condition | SNOMED | | | | Code | Code | Dates | Status | Code | + + + + + + + + | Problem | Chronic | | G89.4 | | Active | 206138496 | | | pain | | | | | | | | syndrome | | | | | | + + + + + + + + | Problem | Dyslipidem | E78.5 | | | Active | 405681067 | | | ia | | | | | | + + + + + + + + | Problem | Iron | | E61.1 | | Active | 86717767 | | | deficiency | | | | | | + + + + + + + + | Problem | Shortness | | R06.02 | | Active | 598989135 | | | of breath | | | | | | + + + + + + + + | Problem | Dyspnea | | R06.00 | | Active | 887150638 | + + + + + + + + | Problem | Essential | | I10 | | Active | 88879069 | | | (primary) | | | | | | | | hypertensi | | | | | | | | on | | | | | | + + + + + + + + | Problem | Gastropare | | E11.43 | | Active | 410440252 | | | sis due to | | | | | | | | DM | | | | | | + + + + + + + + | Problem | Dysuria | | R30.0 | | Active | 73729533 | + + + + + + + + | Problem | UTI | | N39.0 | | Active | 68580596 | | | (urinary | | | | | | | | tract | | | | | | | | infection) | | | | | | + + + + + + + + | Problem | Lumbar | M48.06 | | | Active | 11274233 | | | stenosis | | | | | | + + + + + + + + | Problem | 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 | | Active | 51795085 | | | disorder | | | | | | + + + + + + + + | 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 | | | Active | 05676645 | | | diabetes | | | | | | | | mellitus | | | | | | + + + + + + + + | Assessment | Type 2 | E11.9 | | 20 April, | Active | 92242272 | | | diabetes | | | 2017 | | | | | mellitus | | | | | | + + + + + + + + | Problem | Hyperurice | | E79.0 | | Active | 09320250 | | | agatha | | | | | | + + + + + + + + ALLERGIES + + + + +--------+ | Substance | Reaction | Event Type | Date | Status | + + + + +--------+ | Metoclopramide | Hallucinations | Drug Allergy | March, | Active | | HCl | | | | | + + + + +--------+ | Amitriptyline | Hallucinations | Drug Allergy | March, | Active | | HCl | | | | | + + + + +--------+ SOCIAL HISTORY No smoking Hx information available PLAN OF CARE VITAL SIGNS + + + + | Height | 70 in | 2017-04-20 | + + + + | Weight | 222.8 lbs | 2017-04-20 | + + + + | BMI | 31.96 kg/m2 | 2017-04-20 | + + + + | Temperature | 98.6 degrees Fahrenheit | 2017-04-20 | + + + + | Heart Rate | 76 /min | 2017-04-20 | + + + + | Blood pressure systolic | 175 mm Hg | 2017-04-20 | + + + + | Blood pressure diastolic | 95 mm Hg | 2017-04-20 | + + + + MEDICATIONS + [...] + | Office Visit, Est | April 20, 2017 | | | | Pt., Level 3 | | | | + + + + + IMMUNIZATIONS No Known Immunizations"
--- OUTSIDE RECORDS SUMMARY | 2017-09-22 14:43 | XMS ---
Demographics + + + | Address | [address] | | | [address] | | | [place] [address] | + + + | Preferred Language | Unknown | + + + | Marital Status | Unknown | + + + | Jainism Affiliation | Unknown | + + + | Race | Unknown | + + + | Ethnic Group | Unknown | + + + Author + + + | Author | [facility] | + + + | Organization | [facility] | + + + | Address | [address] | | | [place] [address] | + + + | Phone | | + + + Care Team Providers + + + + | Care Cigar Packer And Shader Name | Role | Phone | + + + + Unavailable | Unavailable | + + + + PROBLEMS +---------+ + + +--------+ + + | Type | Condition | ICD9-CM | [id number] | Onset | Condition | SNOMED | | | | Code | Code | Dates | Status | Code | +---------+ + + +--------+ + + | Problem | Chronic | | G89.4 | | Active | [id number] | | | pain | | | | | | | | syndrome | | | | | | +---------+ + + +--------+ + + | Problem | Dyslipidem | E78.5 | | | Active | [id number] | | | ia | | | | | | +---------+ + + +--------+ + + | 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 | | | | | | +---------+ + + +--------+ + + | Problem | Lumbar | M48.06 | | | Active | 25435879 | | | stenosis | | | | | | +---------+ + + +--------+ + + | Problem | 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 | | Active | 97450157 | | | disorder | | | | | | +---------+ + + +--------+ + + | 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 | | | | | | | | mellitus | | | | | | +---------+ + + +--------+ + + | Problem | Hyperurice | | E79.0 | | Active | 93648932 | | | agatha | | | | | | +---------+ + + +--------+ + + | Problem | Shortness | | R06.02 | | Active | 900931602 | | | of breath | | | | | | +---------+ + + +--------+ + + | Problem | Dyspnea | | R06.00 | | Active | 830525664 | +---------+ + + +--------+ + + | Problem | Essential | | I10 | | Active | 89007316 | | | (primary) | | | | | | | | hypertensi | | | | | | | | on | | | | | | +---------+ + + +--------+ + + | Problem | 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
--- OUTSIDE RECORDS SUMMARY | 2017-09-22 14:43 | XMS ---
Demographics + + + | Address | [address] | | | [address] | | | [place] [address] | + + + | Preferred Language | Unknown | + + + | Marital Status | Unknown | + + + | Tenriism Affiliation | Unknown | + + + | Race | Unknown | + + + | Ethnic Group | Unknown | + + + Author + + + | Author | [facility] | + + + | Organization | [facility] | + + + | Address | [address] | | | [place] [address] | + + + | Phone | | + + + Care Team Providers + + + + | Care Automatic Drilling Machine Operator Name | Role | Phone | + + + + Unavailable | Unavailable | + + + + PROBLEMS + + + + + + + + | Type | Condition | ICD9-CM | [id number] | Onset | Condition | SNOMED | | | | Code | Code | Dates | Status | Code | + + + + + + + + | Problem | Lumbar | M48.06 | | | Active | [id number] | | | stenosis | | | | | | + + + + + + + + | 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 | | | Active | 37802496 | | | diabetes | | | | | | | | mellitus | | | | | | + + + + + + + + | Problem | 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 | | Active | 03394431 | | | disorder | | | | | | + + + + + + + + | Assessment | Depression | Z13.89 | | 20 Apr, | Active | [id number] | | | screen | | | 2017 | | | + + + + + + + + | Assessment | Encounter | | Z13.9 | 20 Apr, | Active | | | | for | | | 2016 | | | | | screening, | | | | | | | | | | | | | | | | unspecifie | | | | | | | | d | | | | | | + + + + + + + + | Assessment | Hypertroph | | L91.0 | 20 Feb, | Active | | | | ic scar | | | 2016 | | | + + + + + + + + | Assessment | Essential | | I10 | 20 Apr, | Active | [id number] | | | (primary) | | | 2016 | | | | | hypertensi | | | | | | | | on | | | | | | + + + + + + + + | Problem | Essential | | I10 | | Active | 78120641 | | | (primary) | | | | | | | | hypertensi | | | | | | | | on | | | | | | + + + + + + + + | Problem | Gastropare | | E11.43 | | Active | [id number] | | | sis due to | | | | | | | | DM | | | | | | + + + + + + + + | Problem | Chronic | | G89.4 | | Active | [id number] | | | pain | | | | | | | | syndrome | | | | | | + + + + + + + + | Problem | Hyperurice | | E79.0 | | Active | 31327496 | | | agatha | | | | | | + + + + + + + + | Problem | Dyslipidem | E78.5 | | | Active | [id number] | | | ia | | | | | | + + + + + + + + | Problem | Iron | | 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 | Unknown | Non Drug | 20 Feb, 2017 | Unknown | | | | Allergy | | | + + + + +---------+ SOCIAL HISTORY No smoking Hx information available PLAN OF CARE VITAL SIGNS + + + + | Height | 70 in | 2017-03-17 | + + + + | Weight | 231.0 lbs | 2017-03-17 | + + + + | BMI | 33.14 kg/m2 | 2017-03-17 | + + + + | Temperature | 98.1 degrees Fahrenheit | 2017-03-17 | + + + + | Heart Rate | 61 /min | 2017-03-17 | + + + + | Blood pressure systolic | 165 mm Hg | 2017-03-17 | + + + + | Blood pressure diastolic | 93 mm Hg | 2017-03-17 | + + + + MEDICATIONS + [...] Apr, | | | Active | | [place]-Lucinda | Once a | | | 2016 | | | | | chloroth | [...] + + + + +--------+ RESULTS + +--------+ + + | Name | Result | Date | Reference Range | + +--------+ + + | Hb A1C | | 2017-03-17 | | + +--------+ + + | Hemoglobin A1c | 8.5 | | | + +--------+ + + PROCEDURES + + + + + | Procedure | Date Ordered | Related Diagnosis | Body Site | + + + + + | Administration of | March 17, 2017 | | | | patient-focused | | | | | health risk | | | | | assessment | | | | + + + + + | EST Pt. Level V | March 17, 2017 | | | | Comprehensive | | | | + + + + + IMMUNIZATIONS No Known Immunizations"
== END ==
LOC: ED 13:57
DX: M48.061 Spinal stenosis, lumbar region without neurogenic claudication (principal); E11.40 Type 2 diabetes mellitus with diabetic neuropathy, unspecified; I10 Essential (primary) hypertension; Z90.49 Acquired absence of other specified parts of digestive tract; Z98.84 Bariatric surgery status; Z88.5 Allergy status to narcotic agent; Z88.8 Allergy status to other drugs, medicaments and biological substances; Z79.899 Other long term (current) drug therapy; Z79.84 Long term (current) use of oral hypoglycemic drugs
CPT/HCPCS: 82607; 82746; 85651; 96372; 99283; J1885

== ENCOUNTER → 2018-04-09 | Emergency (ER) | payer MEDICARE ==
[~2018-04-09] VITALS: Ht 180.3 cm; Wt 98.4 kg
[~2018-04-09] MED LIST changes: +AUGMENTIN 875-1 EACH PO; +NORCO 10-325 T1 EACH PO
== END ==
LOC: ED 12:23
PROC: 0HQGXZZ Repair Left Hand Skin, External Approach (ICD-10-PCS; principal; 2018-04-09)
DX: S68.123A Partial traumatic metacarpophalangeal amputation of left middle finger, initial encounter (principal); S68.127A Partial traumatic metacarpophalangeal amputation of left little finger, initial encounter; S62.632A Displaced fracture of distal phalanx of right middle finger, initial encounter for closed fracture; S62.617A Displaced fracture of proximal phalanx of left little finger, initial encounter for closed fracture; S61.213A Laceration without foreign body of left middle finger without damage to nail, initial encounter; S61.215A Laceration without foreign body of left ring finger without damage to nail, initial encounter; S61.217A Laceration without foreign body of left little finger without damage to nail, initial encounter; E11.40 Type 2 diabetes mellitus with diabetic neuropathy, unspecified; I10 Essential (primary) hypertension; Z88.5 Allergy status to narcotic agent; Z88.8 Allergy status to other drugs, medicaments and biological substances; Z79.84 Long term (current) use of oral hypoglycemic drugs; Z79.899 Other long term (current) drug therapy; W45.8XXA Other foreign body or object entering through skin, initial encounter; Y92.89 Other specified places as the place of occurrence of the external cause; Y99.0 Civilian activity done for income or pay
CPT/HCPCS: 12002; 73130; 99283

== ENCOUNTER 2020-05-12 14:41 | Emergency (ER) | payer MEDICARE ==
[~2020-05-12] VITALS: Ht 180.3 cm; Wt 96.6 kg
[~2020-05-12 14:41] MED LIST changes: +ACTOS15 MG PO; +AMITRIPTYLINE150 MG PO; +FAMOTIDINE40 MG PO; +LIPITOR10 MG PO; +ONDANSETRON ODT8 MG PO; +VITAMIN C1000 MG PO
[2020-05-12] MEDS ORDERED: TAMSULOSIN HCL0.4 MG PO (15:49)
[2020-05-12] MEDS ORDERED: LISINOPRIL5 MG PO (15:50)
[2020-05-12] MEDS ORDERED: OMEPRAZOLE20 MG PO (15:52)
[2020-05-12] MEDS ORDERED: CELEBREX100 MG PO (15:53)
--- NOTE | 2020-05-13 18:30 | EKG ---
[facility] [address] [facility] [place] [address] Signed Signifcant artifact Normal sinus rhythm Incomplete right bundle branch block Cannot rule out Inferior infarct , age undetermined Abnormal ECG When compared with ECG of 07-SEP-2016 14:40, premature ventricular complexes are no longer present premature atrial complexes are no longer present Incomplete right bundle branch block has replaced Right bundle branch block Confirmed by KEMAL METZGER DO ([id number]) on 05/13/2020 6:30:27 PM Electronically Signed By: KEMAL METZGER DO 05/13/20 1830 PATIENT NAME: LAITH DIAZ Electrocardiogram DATE OF : 45 PHYSICIAN: KEMAL METZGER DO REPORT #: [id number] REPORT IS CONFIDENTIAL AND NOT TO BE RELEASED WITHOUT AUTHORIZATION
== END 2020-05-12 16:45 | disposition home or self-care (01) ==
LOC: ED 14:41
DX: N28.9 Disorder of kidney and ureter, unspecified (principal); E11.40 Type 2 diabetes mellitus with diabetic neuropathy, unspecified; I10 Essential (primary) hypertension; Z88.5 Allergy status to narcotic agent; Z88.6 Allergy status to analgesic agent; Z88.8 Allergy status to other drugs, medicaments and biological substances; Z79.899 Other long term (current) drug therapy
CPT/HCPCS: 71046; 80053; 83735; 83880; 84484; 85025; 93005; 93010; 99285-25; C9803; U0002

== ENCOUNTER 2022-10-22 13:35 | Emergency (ER) | payer MEDICARE ==
[~2022-10-22] VITALS: Ht 152.4 cm; Wt 100.2 kg
[~2022-10-22 13:35] MED LIST changes: +CELEBREX100 MG PO; +LISINOPRIL5 MG PO; +OMEPRAZOLE20 MG PO
[2022-10-22] MEDS ORDERED: ALLOPURINOL300 MG PO (14:06)
[2022-10-22] MEDS ORDERED: LISINOPRIL20 MG PO (14:07)
[2022-10-22] MEDS ORDERED: SODIUM BICARBO650 MG PO (14:07)
--- NOTE | 2022-10-22 21:53 | EKG ---
[facility] [address] [facility] [place] [address] Signed Atrial fibrillation with rapid ventricular response with premature ventricular or aberrantly conducted complexes Right axis deviation Possible Right ventricular hypertrophy ST elevation, consider inferior injury or acute infarct ACUTE SC / STEMI Consider right ventricular involvement in acute inferior infarct Abnormal ECG No previous ECGs available Confirmed by ALMA IVAN MD ([id number]) on 10/22/2022 9:53:33 PM Electronically Signed By: ALMA IVAN MD 10/22/222152 PATIENT NAME: LAITH DIAZ Electrocardiogram DATE OF : 45 PHYSICIAN: ALMA IVAN MD REPORT #: [id number] REPORT IS CONFIDENTIAL AND NOT TO BE RELEASED WITHOUT AUTHORIZATION
--- NOTE | 2022-10-22 21:53 | EKG ---
[facility] [address] [facility] [place], [place] [address] Signed Undetermined rhythm Right bundle branch block Abnormal ECG No previous ECGs available Confirmed by ALMA IVAN MD ([id number]) on 10/22/2022 9:53:42 PM Electronically Signed By: ALMA IVAN MD 10/22/222152 PATIENT NAME: LAITH DIAZ MARYLOU Electrocardiogram DATE OF : 45 PHYSICIAN: ALMA IVAN MD REPORT #: [id number] REPORT IS CONFIDENTIAL AND NOT TO BE RELEASED WITHOUT AUTHORIZATION
--- NOTE | 2022-10-22 21:53 | EKG ---
[facility] [address] [place] [address] Signed Wide QRS tachycardia Right axis deviation Brugada pattern, type 1 Nonspecific intraventricular block T wave abnormality, consider inferior ischemia Abnormal ECG When compared with ECG of 12-MAY-2020 14:54, Wide QRS tachycardia has replaced Sinus rhythm Vent. rate has increased BY 61 BPM Confirmed by ALMA IVAN MD ([id number]) on 10/22/2022 9:53:18 PM Electronically Signed By: ALMA IVAN MD 10/22/222152 PATIENT NAME: LAITH DIAZ Electrocardiogram DATE OF : 45 PHYSICIAN: ALMA IVAN MD REPORT #: [id number] REPORT IS CONFIDENTIAL AND NOT TO BE RELEASED WITHOUT AUTHORIZATION
== END 2022-10-22 21:14 | disposition short-term general hospital (02) ==
LOC: ED 13:35
DX: J96.90 Respiratory failure, unspecified, unspecified whether with hypoxia or hypercapnia (principal); E87.5 Hyperkalemia; N17.9 Acute kidney failure, unspecified; Z79.4 Long term (current) use of insulin; E11.40 Type 2 diabetes mellitus with diabetic neuropathy, unspecified; I10 Essential (primary) hypertension; Z88.8 Allergy status to other drugs, medicaments and biological substances; Z88.5 Allergy status to narcotic agent; Z79.899 Other long term (current) drug therapy; Z79.84 Long term (current) use of oral hypoglycemic drugs; Z20.822 Contact with and (suspected) exposure to COVID-19
CPT/HCPCS: 31500; 36415; 36556; 51702; 71045; 80048; 80053; 81003; 83735; 83880; 84484; 85025; 87502; 93005; 93010; 94002; 94644; 94660; 99285-25; C9803; J1815; J1940; J2405; U0003